=== PATIENT | female | born 1945 | race Caucasian/White ===

== ENCOUNTER → 2018-03-23 | Day surgery (SDC) | payer OTHER, MEDICARE ==
[~2018-03-23] VITALS: Ht 154.9 cm; Wt 57.6 kg
[~2018-03-23] MED LIST: CLONAZEPAM0.5 M2 PO; DULOXETINE HCL30 MG PO; FIBER500 MG PO; FLOVENT HFA12 G1 INH; LASIX20 M1 PO; LEXAPRO20 M1 PO; LIPITOR10 M1 PO; MECLIZINE HCL12.5 M1 PO; MELATONIN3 M4 PO; NEURONTIN100 M1 PO; PERCOCET 5-3251 EACH PO; REQUIP4 MG PO; SINGULAIR10 M1 PO; SPIRIVA18 MCG INH; TRAZODONE HCL100 M1 PO; TURMERIC500 M2 PO; VITAMIN C500 M6 PO
[2018-03-23 08:56] LABS: ABSOLUTE BASOPHIL COUNT 0.1 /CUMM (0.0-0.2); ABSOLUTE EOSINOPHIL COUNT 0.1 /CUMM (0.0-0.7); ABSOLUTE GRANULOCYTE CT 6.9 /CUMM (1.4-6.5); ABSOLUTE LYMPH COUNT 1.2 /CUMM (1.2-3.4); ABSOLUTE MONOCYTE COUNT 0.6 /CUMM (0.10-0.60); BASOPHIL % 0.7 % (0.0-2.0); GRANULOCYTE % 77.7 % (42.2-75.2); HEMATOCRIT 40.6 % (37-47); MEAN CORPUSCULAR HGB 27.7 PG (27.0-31.0); MEAN CORPUSCULAR HGB CONC 32.8 G/DL (33.0-37.0); MEAN CORPUSCULAR VOLUME 84.6 FL (81.0-99.0); MEAN PLATELET VOLUME 8.2 FL (7.4-10.4); PLATELET COUNT 337 /CUMM (130-400); RBC DISTRIBUTION WIDTH 16.5 % (11.5-14.5); WHITE BLOOD CELL COUNT 8.9 /CUMM (4.8-10.8)
--- NOTE | 2018-03-23 14:45 | Operative Report ---
Operative/Inv Procedure Report Surgery Date: 03/23/18 Name of Procedure: Right lumpectomy with preop needle localization Right sentinel node biopsy Pre-Operative Diagnosis: Carcinoma the right breast Post-Operative Diagnosis: Same Estimated Blood Loss: scant Surgeon/Virtual Classroom Manager: Nohelia WILBURN,Juice Obrien Anesthesia: laryngeal mask airway Specimens: Right sentinel nodes Right lumpectomy marked at the superior, inferior, lateral and medial margins Operative/Procedure Note Note: The patient was placed on the operating table in the supine position. After suitable general anesthesia was obtained 1-1/2 cc of methylene blue was infiltrated into the periareolar tissue of the right breast under sterile conditions. The right breast and axilla were then prepped and draped in the usual sterile manner taking care not to dislodge the needle localization wire. After timeout was taken the right axilla was entered with a transverse incision in the infra-axillary hairline. This incision was taken down through the skin and subcutaneous tissue with bleeding points being controlled with the electrocautery device. The axillary fat pad was entered. Unfortunately I found out just prior to the surgery when I got to the hospital that they could not find the neoprobe device. For this reason I explored the axilla looking for blue tissue from the methylene blue injection but I did not find any. I did find some palpable lymph nodes which were isolated and excised. These lymph nodes were then sent over to the nuclear radiology department where they were found to be hot on scanning consistent with the sentinel nodes. [place] nodes were then sent to the pathology department. The pathologist did not feel the frozen section was necessary as the tissue looked grossly benign. Hemostasis in the axilla was obtained with the electrocautery device. No other palpable abnormalities were noted. The axillary wound was closed in layers with 3-0 Vicryl in the deeper tissue. 5-0 Vicryl subcuticular closure was used. Attention was then turned to the right breast. A periareolar incision was made in the right lateral inferior area over the palpable mass. This was taken down through the skin and subcutaneous tissue including an island of skin. The nipple was then dissected away from the underlying tissue with the electrocautery device. The electrocautery device was used to maintain hemostasis throughout the lumpectomy. Grossly wide margins were obtained circumferentially and the specimen was removed including the localization wire. The specimen was marked at the superior, lateral, inferior and medial margins with sutures and identified for the pathologist. Hemostasis in the bed of the lumpectomy site was noted to be good. The lumpectomy incision was closed with interrupted layers with 3-0 Vicryl in the deeper breast tissue. 5-0 Vicryl subcuticular skin closure was used. Steri-Strips and sterile dressings were applied to both wounds. The patient tolerated the procedure well and was taken to the recovery room with stable vital signs. Discharge Disposition: PACU
--- NOTE | 2018-03-23 15:54 | MAMMOGRAPHY REPORT ---
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 Preoperative needle localization is requested. COMPARISON: Prior studies done on 02/22/2018. TECHNIQUE AND FINDINGS: The details of the procedure, as well as the risks, benefits, and alternatives to the procedure were explained to the patient in detail and all of her questions were answered, after which, written informed consent was obtained. Prior to the procedure, sonography revealed solid biopsy-proved invasive ductal carcinoma in the subareolar region of the right breast measuring 1.5 x 1.2 x 1.6 cm. A timeout was performed, the lesion intended for needle localization was targeted and the skin of the right breast was then prepped and draped in the usual sterile fashion. Using sonographic guidance, sterile technique and buffered 10 mL of 2% lidocaine mixed with 1 mL of sodium bicarbonate without epinephrine for local anesthesia, a 5 cm Kopan's needle was placed within the biopsy-proved malignancy at subareolar region of the right breast. The patient tolerated the procedure well. The single view mammogram further confirmed accurate placement of the wire within the intended mass. Appropriate adjustment was made. Previously placed tissue marker was also identified adjacent to the wire. The worksheet was appropriately labeled and was sent to the OR with the patient. Subsequently, following excision of the mass, the specimen apparently was sent directly to pathology, without performing any specimen radiography. The performing surgeon, Dr. Juice Pozo felt the specimen radiography was not necessary. When contacted, Dr. Pozo confirmed removal of the intact localization wire at the time of surgery. IMPRESSION: 1. Successful sonographic-guided wire localization of the right breast biopsy-proved invasive ductal carcinoma of the right periareolar region. 2. Mammographic confirmation of accurate needle localization along with appropriate marking for presurgical roadmap with worksheet. 3. The specimen radiography however was not performed since the performing surgeon Dr. Pozo felt it was unnecessary. The specimen was sent directly to pathology following excision. When contacted, Dr. Pozo confirmed removal of the intact localization wire at the time of surgery. 4. The histology report is pending.
--- NOTE | 2018-03-23 17:52 | NUCLEAR MEDICINE REPORT ---
EXAMINATION: LYMPHOSCINTIGRAPHY CLINICAL INFORMATION: Central right breast cancer. COMPARISON: None. TECHNIQUE: A total of 1.1 mCi technetium 99m Lymphoseek was injected in divided doses around the right areola by IKE Villalpando. Images of the right breast and axilla in the anterior, DANIELLE, and right lateral projections were obtained with simultaneous visualization of the body silhouette using a cobalt flood source, with the patient positioned between the flood source and the gamma camera. FINDINGS: A lymphatic channel and a sentinal node is well visualized in the right axilla. No definite second echelon node are visualized in the right axilla. IMPRESSION: A sentinal node in the right axilla is well visualized. Following these images, the patient was transported to the operating room for a probe guided lymph node resection.
== END ==
LOC: STS 01:58
PROVIDERS: Surgery
DX: C50.111 Malignant neoplasm of central portion of right female breast (principal); I10 Essential (primary) hypertension; J44.9 Chronic obstructive pulmonary disease, unspecified; R01.1 Cardiac murmur, unspecified; I71.4 Abdominal aortic aneurysm, without rupture; F17.200 Nicotine dependence, unspecified, uncomplicated; G25.81 Restless legs syndrome
CPT/HCPCS: 36415; 76942; 77065-RT; A9520; J0131; J2001; J2250; Q9968

== ENCOUNTER → 2018-05-25 | Day surgery (SDC) | payer OTHER, MEDICARE ==
[~2018-05-25] VITALS: Ht 144.8 cm; Wt 59.0 kg
[~2018-05-25] MED LIST changes: +PERCOCET 10-321 EACH PO
[2018-05-25 06:27] LABS: ABSOLUTE BASOPHIL COUNT 0.1 /CUMM (0.0-0.2); ABSOLUTE EOSINOPHIL COUNT 0.1 /CUMM (0.0-0.7); ABSOLUTE GRANULOCYTE CT 5.9 /CUMM (1.4-6.5); ABSOLUTE LYMPH COUNT 1.3 /CUMM (1.2-3.4); ABSOLUTE MONOCYTE COUNT 0.6 /CUMM (0.10-0.60); BASOPHIL % 0.8 % (0.0-2.0); EOSINOPHIL % 1.6 % (0-5); GRANULOCYTE % 73.7 % (42.2-75.2); HEMATOCRIT 38.8 % (37-47); MEAN CORPUSCULAR HGB 27.4 PG (27.0-31.0); MEAN CORPUSCULAR HGB CONC 33.1 G/DL (33.0-37.0); MEAN CORPUSCULAR VOLUME 82.8 FL (81.0-99.0); PLATELET COUNT 267 /CUMM (130-400); RBC DISTRIBUTION WIDTH 17.2 % (11.5-14.5); RED BLOOD CELL CT 4.68 /CUMM (4.20-5.40)
--- NOTE | 2018-05-25 08:56 | Operative Report ---
Operative/Inv Procedure Report Surgery Date: 05/25/18 Name of Procedure: Wider lumpectomy right breast Pre-Operative Diagnosis: Carcinoma right breast with positive lumpectomy margins Post-Operative Diagnosis: Same Estimated Blood Loss: scant Surgeon/Electrical Supervisor: Nohelia WILBURN,Juice Obrien Anesthesia: laryngeal mask airway Specimens: Wider right lumpectomy with superior, lateral, inferior and medial margins marked Complications: None Operative/Procedure Note Note: The patient was placed on the operative table in the supine position. A surgical timeout was taken. After suitable general anesthesia was obtained the right breast was prepped and draped in the usual sterile manner. A periareolar incision was made through the previous incision and taken down through the skin and subcutaneous tissue. Bleeding points was controlled with the electrocautery device. Dissection was taken into the deep breast tissue. The previous lumpectomy site was identified. A wider excision was done with the electrocautery device for hemostasis. Special attention was paid to the superior and lateral margins as these were the close and positive margins in the past. The dissection was taken down to the chest wall. After the specimen was removed the superior, lateral, inferior and medial margins were marked with sutures. The specimen was sent off to pathology. Hemostasis of the operative cavity was noted to be good. The incision was closed with interrupted 3-0 Vicryl to the deeper breast tissue. 5-0 Vicryl subcuticular skin closure was used. Steri-Strips and a sterile dressing were applied. The patient tolerated the procedure well and was taken to the recovery room with stable vital signs. Discharge Disposition: Same Day Admissions
== END ==
LOC: STS 03:22
PROVIDERS: Surgery
DX: C50.111 Malignant neoplasm of central portion of right female breast (principal); Z17.0 Estrogen receptor positive status [ER+]; J44.9 Chronic obstructive pulmonary disease, unspecified; F17.200 Nicotine dependence, unspecified, uncomplicated; K21.9 Gastro-esophageal reflux disease without esophagitis; M19.90 Unspecified osteoarthritis, unspecified site
CPT/HCPCS: 36415